=== PATIENT | female | born 1995 | race Two or more races ===

== ENCOUNTER 2021-06-23 00:10 | Emergency (ER) | payer OTHER ==
[~2021-06-23] VITALS: Ht 167.6 cm; Wt 53.1 kg
[2021-06-23] MEDS ORDERED: INTESTINEX680 M2 PO (03:11)
[2021-06-23] MEDS ORDERED: NAPROXEN375 MG PO (03:11)
[2021-06-23] MEDS ORDERED: CLINDAMYCIN HC300 MG PO (03:11)
[2021-06-23] MEDS ORDERED: FLUCONAZOLE150 MG PO (03:15)
== END 2021-06-23 03:55 | disposition home or self-care (01) ==
LOC: ER 00:10
DX: H66.92 Otitis media, unspecified, left ear (principal)

== ENCOUNTER 2021-07-02 13:08 | Emergency (ER) | payer OTHER ==
[~2021-07-02] VITALS: Ht 165.1 cm; Wt 51.7 kg
[~2021-07-02 13:08] MED LIST: CLINDAMYCIN HC300 MG PO; FLUCONAZOLE150 MG PO; INTESTINEX680 M2 PO; NAPROXEN375 MG PO
[2021-07-02] MEDS ORDERED: OFLOXACIN5 M1 OT (16:15)
[2021-07-02] MEDS ORDERED: CIPRO500 MG PO (16:15)
[2021-07-02] MEDS ORDERED: INTESTINEX680 M1 PO (16:15)
== END 2021-07-02 16:40 ==
LOC: ER 13:08
DX: H66.92 Otitis media, unspecified, left ear (principal); B96.5 Pseudomonas (aeruginosa) (mallei) (pseudomallei) as the cause of diseases classified elsewhere; B95.2 Enterococcus as the cause of diseases classified elsewhere